=== PATIENT | female | born 1985 | race Caucasian/White ===

== ENCOUNTER → 2016-11-14 | Outpatient (CLI) | payer OTHER | LOC: BMCIMAGING 13:42 | PROVIDERS: ATTEND Internal Medicine Rheumatology | DX: M05.89 Other rheumatoid arthritis with rheumatoid factor of multiple sites (principal) ==

== ENCOUNTER → 2017-07-22 | Outpatient (CLI) | payer OTHER | LOC: BMCIMAGING 14:37 | PROVIDERS: ATTEND Allergy & Immunology Allergy | DX: R06.09 Other forms of dyspnea (principal) ==